=== PATIENT | male | born 1945 | race Caucasian/White ===

== ENCOUNTER 2016-07-09 11:41 | Observation (INO) | payer MEDICARE ==
[2016-07-09 11:54] LABS: CARBON DIOXIDE-VENOUS 24 mmol/L (21-33); CREATININE 0.99 mg/dl (0.67-1.17); GLUCOSE 151 mg/dl (65-120); POTASSIUM 3.7 mmol/L (3.5-5.3); SODIUM 137 mmol/L (135-146); eGFR VALUE FOR BLACK >90 mL/Min
[2016-07-09 11:55] LABS: BASO % 0.4 % (0-2); EOSINOPHIL ABSOLUTE COUNT 0.1 tho/cmm (0.0-0.7); HCT-HEMATOCRIT 40.3 % (36.0-53.5); HGB-HEMOGLOBIN 13.7 gm/dl (13.5-17.0); IMMATURE GRANULOCYTES ABSOLUTE 0.02 tho/cmm (0-0.03); IMMATURE GRANULOCYTES PERCENT 0.3 % (0-0.3); LYMPH % 24.6 % (20-45); LYMPH ABSOLUTE COUNT 1.8 tho/cmm (0.8-4.5); MCH (MEAN CORPUSCULAR HGB) 30.4 pg (28.0-32.0); MCV (MEAN CELL VOLUME) 89.4 fl (82.0-96.0); MEAN PLATELET VOLUME 9.8 cmc (9.4-12.4); MONO % 5.7 % (0-12); MONOCYTE ABSOLUTE COUNT 0.4 tho/cmm (0.0-1.2); PLATELET COUNT 276 tho/cmm (150-450); RED BLOOD COUNT 4.51 mil/cmm (4.40-5.70); WHITE BLOOD COUNT 7.4 tho/cmm (4.0-10.0)
[2016-07-09 12:00] LABS: INR 0.9 INR (0.9-1.1); PROTHROMBIN TIME 10.6 SECONDS (9.0-13.6)
[2016-07-09 12:11] LABS: ALB/GLOB RATIO 0.9 (0.8-2.0); ALBUMIN 3.6 g/dl (3.5-5.0); ALKALINE PHOSPHATASE 82 U/L (33-138); ALT/SGPT 31 U/L (12-78); AST/SGOT 25 U/L (10-40); BILIRUBIN,TOTAL 0.3 mg/dl (0.0-1.5); BLOOD UREA NITROGEN 24 mg/dl (6-24); CALCIUM 8.8 mg/dl (8.5-10.5); CHLORIDE 106 mmol/l (96-110)
[2016-07-09] MEDS ORDERED: PRINIVIL10 M1 PO (12:15)
[2016-07-09 12:18] LABS: ANION GAP 11 mmol/L (0-20)
[2016-07-09 12:55] LABS: ESR-ERYTHROCYTE SED RATE 9 mm/hr (0-20)
[2016-07-10] MEDS ORDERED: ASPIRIN81 M1 PO (13:01)
[2016-07-10] MEDS ORDERED: ZOCOR20 M1 PO (13:03)
== END 2016-07-10 14:09 ==
LOC: EDMED 11:41 → EMR2 17:54 → 5EB 20:10
PROVIDERS: Emergency Medicine; ADMIT Internal Medicine
DX: G45.9 Transient cerebral ischemic attack, unspecified (principal); I35.0 Nonrheumatic aortic (valve) stenosis; I10 Essential (primary) hypertension; E78.5 Hyperlipidemia, unspecified; F17.210 Nicotine dependence, cigarettes, uncomplicated; R73.9 Hyperglycemia, unspecified; Z79.899 Other long term (current) drug therapy
CPT/HCPCS: G0378; J1650; J7030